=== PATIENT | female | born 2000 | race Two or more races ===

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

== ENCOUNTER 2019-07-13 12:45 | Emergency (ER) | payer OTHER ==
[2019-07-13 12:56] VITALS: BP 136/73
--- NOTE | 2019-07-13 13:33 | UC ---
Abdominal Pain Female HPI - HPI Summary HPI Summary: 19 yo female presents with abdominal cramping. She tells me that on 06/18/19 she had a positive urine test x3. Over the last 2-3 days she has had abdominal cramping and nausea. She has not vomited. She is . She denies fever, chills, SOB, chest pain, back pain, vaginal bleeding/discharge, dysuria. She states that her periods have always been very irregular and the last period she had was in late march or early april 2019. - History of Current Complaint Chief Complaint: UCAbdominalPain Stated Complaint: pegnancy TESTING Time Seen by Provider: 07/13/19 13:32 Hx Obtained From: Patient Hx Last Menstrual Period: April 2019 Onset/Duration: Sudden Onset Severity Initially: Mild Severity Currently: Mild Pain Intensity: 4 Allergies/Adverse Reactions: Allergies Allergy/AdvReac Type Severity Reaction Status Date / Time No Known Allergies Allergy Verified 07/13/19 12:56 Home Medications: Home Medications [id number]/Iron Fum/Folic/Docusate [ 19] 1 tab PO DAILY WITH MEAL 07/13/19 [ History Confirmed 07/13/19] PMH/Surg Hx/FS Hx/Imm Hx - Additional Past Medical History Additional PMH: None - Surgical History Surgical History: None - Family History Known Family History: Negative: Cardiac Disease, Hypertension, Diabetes - Social History Lives: With Family Alcohol Use: None Substance Use Type: None Smoking Status (MU): Never Smoked Tobacco - Immunization History Vaccination Up to Date: Yes Review of Systems All Other Systems Reviewed And Are Negative: No Constitutional: Positive: Negative Skin: Positive: Negative Respiratory: Positive: Negative Cardiovascular: Positive: Negative Gastrointestinal: Positive: Abdominal Pain, Nausea Genitourinary: Positive: Negative Neurological: Positive: Negative Psychological: Positive: Negative Physical Exam - Summary Physical Exam Summary: GENERAL: NAD. WDWN. No pain distress. SKIN: No rashes, sores, lesions, or open wounds. NECK: Supple. Nontender. No lymphadenopathy. CHEST: CTAB. No r/r/w. No accessory muscle use. Breathing comfortably and in no distress. CV: RRR. Pulses intact. Cap refill <2seconds ABDOMEN: Soft. NTTP. No CVA tenderness. Bowel sounds present NEURO: Alert. PSYCH: Age appropriate behavior. Triage Information Reviewed: Yes Vital Signs: Initial Vital Signs Temp 98.4 F 07/13/19 12:51 Pulse 97 07/13/19 12:51 Resp 18 07/13/19 12:51 BP 136/73 07/13/19 12:51 Pulse Ox 100 07/13/19 12:51 Laboratory Tests 07/13/19 07/13/19 13:46 13:48 POC Urine Color Yellow POC Urine Clarity Cloudy POC Urine pH 7.0 POC Ur Specif [place] 1.020 POC Urine Protein Negative POC Ur Glucose (UA) Negative POC Urine Ketones Negative POC Urine Blood Negative POC Urine Nitrite Negative POC Urine Bilirubin Negative POC Urine Urobilinogen 1.0 POC U Leukocyte Esteras Negative POC Ur Test Positive A Vital Signs Reviewed: Yes Diagnostics - Radiology US transvaginal Radiology Interpretation Completed By: Radiologist Summary of Radiographic Findings: IMPRESSION: 1. EARLY INTRAUTERINE WITH AN ESTIMATED GESTATIONAL AGE OF 7 WEEKS 3 DAYS BY CROWN-RUMP LENGTH. 2. SMALL 2 CM CYST WITHIN THE RIGHT OVARY. Abd Pain Female Course/Dx - Course Course Of Treatment: US as above. UA negative. Discussed results with pt. Recommend f/u with OBGYN within the next 1-2 weeks for routine treatment. Advised to go to the ER if she develops abdominal pain, pelvic pain, vaginal bleeding, fever, or vomiting. - Differential Dx/Diagnosis Provider Diagnosis: Abdominal cramping, Discharge ED - Sign-Out/Discharge Documenting (check all that apply): Patient Departure All imaging exams completed and their final reports reviewed: Yes - Discharge Plan Condition: Stable Disposition: HOME Patient Education Materials: Loratadine (By mouth), (ED) Forms: *Work Release Referrals: Fredi Grace NP [Primary Care Provider] - Carlos Guy MD [Medical Doctor] - As Soon As Possible Additional Instructions: If you develop a fever, shortness of breath, chest pain, new or worsening symptoms - please call your PCP or go to the ED immediately. Keep taking your vitamin Please call OBGYN at the number below to schedule an appointment as soon as possible May take claritin as directed for your allergies. - Billing Disposition and Condition Condition: STABLE Disposition: Home - Attestation Statements Provider Attestation: Per institutional requirements, I have reviewed the chart, however, I was not consulted specifically or made aware of this patient by the midlevel provider. I did not personally evaluate, interact with , or disposition this patient.
== END 2019-07-13 14:53 | disposition home or self-care (01) ==
LOC: UCEAST 12:45
DX: O99.89 Other specified diseases and conditions complicating pregnancy, childbirth and the puerperium (principal); R10.9 Unspecified abdominal pain; R11.0 Nausea
CPT/HCPCS: 76801; 81003; 84702; 99211; G0463

== ENCOUNTER 2019-09-15 17:03 | Emergency (ER) | payer OTHER ==
[2019-09-15 17:56] LABS: ABS Eosinophils 0.1 10^3/ul (0-0.6); ABS Lymphocytes 2.1 10^3/ul (1.0-4.8); ABS Monocytes 0.9 10^3/ul (0-0.8); ABS Neutrophils 7.6 10^3/ul (1.5-7.7); Eosinophil % 0.5 %; Hematocrit 36 % (35-47); Hemoglobin 12.2 g/dL (12.0-16.0); Mean Corpuscular HGB Conc 34 g/dL (31-36); Mean Corpuscular Hemoglobin 31 pg (27-31); Mean Corpuscular Volume 91 fL (80-97); Mean Platelet Volume 8.8 fL (7.4-10.4); Platelet Count 222 10^3/uL (150-450); Red Blood Count 3.98 10^6 /uL (3.70-4.87); Red Cell Distribution Width 13 % (10-15); White Blood Count 10.7 10^3/uL (3.5-10.8)
[2019-09-15 18:33] LABS: Albumin 3.8 g/dL (3.2-5.2); Albumin/Globulin Ratio 1.4 (1-3); BUN/Creatinine Ratio 8.8 (8-20); C Reactive Protein 4.48 mg/L (<8.01); Calcium 8.7 mg/dL (8.6-10.3); EGFR African American 110.7 (>60); EGFR Non-African American 91.4 (>60); Globulin 2.8 g/dL (2-4); Magnesium 1.7 mg/dL (1.9-2.7); Total Bilirubin 0.3 mg/dL (0.2-1.0); Total Protein 6.6 g/dL (6.4-8.9)
[2019-09-15] MEDS ORDERED: Ondansetron INJ* 2 MG/ML VIAL IV ONE (20:09)
--- NOTE | 2019-09-15 20:17 | ED ---
Abdominal Pain/Female - HPI Summary HPI Summary: Patient is a 19 y/o F presenting to the ED for a chief complaint of suprapubic abdominal pain that began on 09/15/19. Patient is present with a friend. Patient reports having suprapubic abdominal pain described as cramping with nausea and vomiting. She states she has been unable to keep any food or liquids down because she vomits soon after eating or drinking. Patient also admits a fever of 99 F and dizziness. She denies diarrhea. Patient is 16 weeks and states she has morning sickness with nausea and vomiting 1-2 times in the morning, but states her symptoms now are different. She denies any alleviating factors. This is her first . - History of Current Complaint Chief Complaint: EDNauseaVomitDiarrh Stated Complaint: 16 WEEKS PREG NAUSEA AND VOMITING PER PT Time Seen by Provider: 09/15/19 20:04 Hx Obtained From: Patient Hx Last Menstrual Period: April 2019 ?: Yes - 16 weeks Onset/Duration: Sudden Onset, Still Present Timing: Constant Severity Initially: Moderate Severity Currently: Moderate Pain Intensity: 0 Pain Scale Used: 0-10 Numeric Location: Suprapubic Radiates: No Aggravating Factor(s): Food, Other: - Liquids Alleviating Factor(s): Nothing Associated Signs and Symptoms: Positive: Fever - In vitals, 98.8 F, Dizzy, Nausea, Vomiting. Negative: Vaginal Bleeding, Diarrhea, Other: - Negative vaginal discharge Allergies/Adverse Reactions: Allergies Allergy/AdvReac Type Severity Reaction Status Date / Time No Known Allergies Allergy Verified 09/15/19 17:11 PMH/Surg Hx/FS Hx/Imm Hx Previously Healthy: Yes Endocrine/Hematology History: Denies: Hx Diabetes, Hx Thyroid Disease Cardiovascular History: Denies: Hx Hypercholesterolemia, Hx Hypertension, Hx Peripheral Vascular Disease Respiratory History: Reports: Hx Asthma Denies: Hx Chronic Obstructive Pulmonary Disease (COPD) GI History: Denies: Hx Ulcer Musculoskeletal History: Denies: Hx Arthritis, Hx Rheumatoid Arthritis, Hx Osteoporosis Sensory History: Denies: Hx Cataracts, Hx Contacts or Glasses, Hx Glaucoma, Hx Legally Blind, Hx Deafness Opthamlomology History: Denies: Hx Cataracts, Hx Contacts or Glasses, Hx Glaucoma, Hx Legally Blind EENT History: Denies: Hx Deafness Neurological History: Denies: Hx Headaches, Hx Seizures, Hx Transient Ischemic Attacks (TIA) Psychiatric History: Denies: Hx Anxiety, Hx Depression - Surgical History Surgical History: None Surgery Procedure, Year, and Place: None Infectious Disease History: No Infectious Disease History: Denies: Hx Hepatitis, Hx Human Immunodeficiency Virus (HIV), Traveled Outside the [place] in Last 30 Days - Family History Known Family History: Negative: Cardiac Disease, Hypertension, Diabetes - Social History Occupation: Unemployed Lives: With Family Alcohol Use: None Hx Substance Use: No Substance Use Type: Reports: None Hx Tobacco Use: No Smoking Status (MU): Never Smoked Tobacco Review of Systems Positive: Fever - In vitals, 98.8 F Positive: Abdominal Pain - Suprapubic, cramping, Vomiting, Nausea. Negative: Diarrhea Positive: other - Negative vaginal bleeding. Negative: discharge - Vaginal Neurological: Other - Positive dizziness All Other Systems Reviewed And Are Negative: Yes Physical Exam - Summary Physical Exam Summary: Appearance: Well-appearing, Well-nourished, lying in bed comfortably Skin: Warm, dry, no obvious rash Eyes: sclera anicteric, no conjunctival pallor ENT: mucous membranes moist, pharynx appears normal Neck: Supple, nontender Respiratory: Clear to auscultation, no signs of respiratory distress Cardiovascular: Normal S1, S2. No murmurs. Normal distal pulses in tibial and radial bilaterally. Abdomen: Soft, nontender, normal active bowel sounds present. Fundus of the uterus is palpable and is 4 cm below the umbilicus consistent with her dates. Musculoskeletal: Normal, Strength/ROM Intact Neurological: A&Ox3, awake and alert, mentation is normal, speech is fluent and appropriate Psychiatric: affect is normal, does not appear anxious or depressed Triage Information Reviewed: Yes Vital Signs On Initial Exam: Initial Vitals Temp Pulse Resp BP Pulse Ox 98.8 F 84 16 121/90 100 09/15/19 17:11 09/15/19 17:11 09/15/19 17:11 09/15/19 17:11 09/15/19 17:11 Vital Signs Reviewed: Yes Procedures - Sedation Patient Received Moderate/Deep Sedation with Procedure: No Diagnostics - Vital Signs Vital Signs Temp Pulse Resp BP Pulse Ox 09/15/19 18:43 99.6 F 84 16 110/68 99 09/15/19 17:11 98.8 F 84 16 121/90 100 - Laboratory Lab Results: Lab Results 09/15/19 09/15/19 09/15/19 Range/Units 17:44 17:44 17:44 WBC 10.7 (3.5-10.8) 10^3/uL RBC 3.98 (3.70-4.87) 10^6 /uL Hgb 12.2 (12.0-16.0) g/dL Hct 36 (35-47) % MCV 91 (80-97) fL MCH 31 (27-31) pg MCHC 34 (31-36) g/dL RDW 13 (10-15) % Plt Count 222 (150-450) 10^3/uL MPV 8.8 (7.4-10.4) fL Neut % (Auto) 71.3 % Lymph % (Auto) 20.0 % Vermilion % (Auto) 8.0 % Eos % (Auto) 0.5 % Baso % (Auto) 0.2 % Absolute Neuts (auto) 7.6 (1.5-7.7) 10^3/ul Absolute Lymphs (auto) 2.1 (1.0-4.8) 10^3/ul Absolute Monos (auto) 0.9 H (0-0.8) 10^3/ul Absolute Eos (auto) 0.1 (0-0.6) 10^3/ul Absolute Basos (auto) 0.0 (0-0.2) 10^3/ul Absolute Nucleated RBC 0.0 10^3/ul Nucleated RBC % 0.0 Sodium 137 (135-145) mmol/L Potassium 4.0 (3.5-5.0) mmol/L Chloride 107 (101-111) mmol/L Carbon Dioxide 24 (22-32) mmol/L Anion Gap 6 (2-11) mmol/L BUN 7 (6-24) mg/dL Creatinine 0.80 (0.51-0.95) mg/dL Est GFR ( Amer) 110.7 (>60) Est GFR (Non-Af Amer) 91.4 (>60) BUN/Creatinine Ratio 8.8 (8-20) Glucose 76 (70-100) mg/dL Lactic Acid 0.5 (0.5-2.0) mmol/L Calcium 8.7 (8.6-10.3) mg/dL Magnesium 1.7 L (1.9-2.7) mg/dL Total Bilirubin 0.30 (0.2-1.0) mg/dL AST 19 (13-39) U/L ALT 26 (7-52) U/L Alkaline Phosphatase 54 (34-104) U/L C-Reactive Protein 4.48 (<8.01) mg/L Total Protein 6.6 (6.4-8.9) g/dL Albumin 3.8 (3.2-5.2) g/dL Globulin 2.8 (2-4) g/dL Albumin/Globulin Ratio 1.4 (1-3) Lipase 27 (11.0-82.0) U/L Result Diagrams: 09/15/19 17:44 09/15/19 17:44 Lab Statement: Any lab studies that have been ordered have been reviewed, and results considered in the medical decision making process. Re-Evaluation - Re-Evaluation First Eval Re-Evaluation Time: 21:52 Change: Improved Comment: At 21:52, patient is feeling improved and her nausea is resolved. Abdominal Pain Fem Course/Dx - Course Course Of Treatment: Patient is a 19 y/o F presenting to the ED for a chief complaint of suprapubic abdominal pain that began on 09/15/19. Patient is present with a friend. Patient reports having suprapubic abdominal pain described as cramping with nausea and vomiting. She states she has been unable to keep any food or liquids down because she vomits soon after eating or drinking. Patient also admits a fever of 99 F and dizziness. She denies diarrhea. Patient is 16 weeks and states she has morning sickness with nausea and vomiting 1-2 times in the morning, but states her symptoms now are different. She denies any alleviating factors. This is her first . On exam, fundus of the uterus is palpable and is 4 cm below the umbilicus consistent with her dates. In the ED course, patient was given Zofran 8 mg IV and fluids. Laboratory abnormal findings: absolute monos 0.9, magnesium 1.7. At 21:52, patient is feeling improved and her nausea is resolved. Patient will be discharged with a diagnosis of acute nausea and vomiting. Follow up with PCP in 2-3 days. - Diagnoses Provider Diagnoses: Nausea and vomiting Discharge ED - Sign-Out/Discharge Documenting (check all that apply): Patient Departure - Discharge - Discharge Plan Condition: Improved Disposition: HOME Prescriptions: Ondansetron ODT TAB* [Zofran 4 MG Odt TAB*] 4 mg PO Q6H PRN #15 tab.odt PRN Reason: Nausea Patient Education Materials: Nausea and Vomiting in (ED) Referrals: Fredi Grace, ELECTROLYSIST [Primary Care Provider] - - Billing Disposition and Condition Condition: IMPROVED Disposition: Home - Attestation Statements Document Initiated by Cathieibe: Yes Documenting Scribe: Merced Emanuel Provider For Whom Nilesh is Documenting (Include Credential): Carlos Manuel Villanueva MD Scribe Attestation: Merced Olivo scribed for Carlos Manuel Villanueva MD on 09/16/19 at 0624. Scribe Documentation Reviewed: Yes Provider Attestation: The documentation as recorded by the Merced villagomez accurately reflects the service I personally performed and the decisions made by me, Carlos Manuel Villanueva MD Status of Scribe Document: Viewed
[2019-09-15] MEDS: NS 0.9% 1000 ML** 2,000 ML IV ONE (20:35)
[2019-09-15 23:01] VITALS: BP 114/73
== END 2019-09-15 23:00 | disposition home or self-care (01) ==
LOC: ED 17:03
DX: R11.2 Nausea with vomiting, unspecified (principal); J45.909 Unspecified asthma, uncomplicated
CPT/HCPCS: 36415; 80053; 83605; 83690; 83735; 85025; 86140; 96361; 96374; 99283; J2405

== ENCOUNTER 2019-10-07 17:56 | Emergency (ER) | payer OTHER ==
[2019-10-07 18:07] VITALS: BP 113/67
--- NOTE | 2019-10-07 18:24 | UC ---
Skin Complaint HPI - HPI Summary HPI Summary: 19 yo female presents with lesions to leg. She tells me that on 09/30 she noticed a rash on her left medial-posterior thigh after sleeping in a hotel bed. Since that time has had some blistering, drainage, and now crusting/ scabbing of the area. She has itching and slight burning to the site. Also has some tingling sensations down her knee into her lower leg. She is currently 20weeks . She is seeing her OBGYN for a routine check in 2 days. Denies recent illness, injury, fever, chills, abdominal/pelvic pain, n/v, vaginal bleeding. - History of Current Complaint Chief Complaint: UCSkin Time Seen by Provider: 10/07/19 18:24 Stated Complaint: SORE ON LEG Hx Obtained From: Patient Hx Last Menstrual Period: April 2019 Onset/Duration: Gradual Onset Onset Severity: Mild Current Severity: Moderate Pain Intensity: 6 Pain Scale Used: 0-10 Numeric - Allergy/Home Medications Allergies/Adverse Reactions: Allergies Allergy/AdvReac Type Severity Reaction Status Date / Time No Known Allergies Allergy Verified 09/15/19 17:11 PMH/Surg Hx/FS Hx/Imm Hx - Additional Past Medical History Additional PMH: None - Surgical History Surgical History: None Surgery Procedure, Year, and Place: None - Family History Known Family History: Negative: Cardiac Disease, Hypertension, Diabetes - Social History Occupation: Employed Full-time Lives: With Family Alcohol Use: None Substance Use Type: None Smoking Status (MU): Never Smoked Tobacco - Immunization History Vaccination Up to Date: Yes Review of Systems All Other Systems Reviewed And Are Negative: No Constitutional: Positive: Negative Skin: Positive: Rash Eyes: Positive: Negative ENT: Positive: Negative Respiratory: Positive: Negative Cardiovascular: Positive: Negative Gastrointestinal: Positive: Negative Genitourinary: Positive: Negative Neurological: Positive: Negative Psychological: Positive: Negative Physical Exam - Summary Physical Exam Summary: GENERAL: NAD. WDWN. No pain distress. SKIN: LEFT THIGH: Medial-posterior aspect with two 2.0cm clusters of mild to moderately erythematous crusts and scant clear vesicles. Mildly TTP. No active drainage or open wound. No streaking or abscess. CHEST: No accessory muscle use. Breathing comfortably and in no distress. CV: Pulses intact. Cap refill <2seconds NEURO: Alert. PSYCH: Age appropriate behavior. Triage Information Reviewed: Yes Vital Signs: Initial Vital Signs Temp 97.7 F 10/07/19 18:02 Pulse 96 10/07/19 18:02 Resp 18 10/07/19 18:02 BP 113/67 10/07/19 18:02 Pulse Ox 99 10/07/19 18:02 Vital Signs Reviewed: Yes Course/Dx - Course Course Of Treatment: Suspect shingles. The lesions have already mostly scabbed and she is at least 5 days after initial presentation of the rash. Discussed with Dr. Vallejo - no po treatment at this time and f/u with OBGYN as schedule on Saturday. Discussed this with pt. Advised to keep area covered at all times and to inform her OBGYN at her appt in 2 days. - Diagnoses Provider Diagnosis: Shingles Discharge ED - Sign-Out/Discharge Documenting (check all that apply): Patient Departure All imaging exams completed and their final reports reviewed: No Studies - Discharge Plan Condition: Stable Disposition: HOME Patient Education Materials: Shingles (ED) Referrals: Fredi Grace, TECHNICAL SALES ASSOCIATE [Primary Care Provider] - Additional Instructions: It is very important that you keep your appointment with OBGYN on Saturday -- please show them your leg and let them know it has been diagnosed as shingles. - Billing Disposition and Condition Condition: STABLE Disposition: Home
== END 2019-10-07 18:56 | disposition home or self-care (01) ==
LOC: UCEAST 17:56
DX: O98.512 Other viral diseases complicating pregnancy, second trimester (principal); B02.9 Zoster without complications; Z3A.20 20 weeks gestation of pregnancy
CPT/HCPCS: 99211; G0463

== ENCOUNTER 2019-12-09 21:20 | Emergency (ER) | payer OTHER ==
[2019-12-09] MEDS ORDERED: NS 0.9% 1000 ML** 1,000 ML IV ONE ×2 (22:32→22:50)
[2019-12-09] MEDS ORDERED: Ondansetron INJ* 2 MG/ML VIAL IV ONE ×2 (22:32→22:50)
[2019-12-09] MEDS ORDERED: Pantoprazole IV* 40 MG IV ONE (22:50)
[2019-12-09 22:52] LABS: ABS Monocytes 0.5 10^3/ul (0-0.8); ABS Neutrophils 13.3 10^3/ul (1.5-7.7); Eosinophil % 0.1 %; Hematocrit 38 % (35-47); Hemoglobin 13.1 g/dL (12.0-16.0); Mean Corpuscular HGB Conc 34 g/dL (31-36); Mean Corpuscular Hemoglobin 31 pg (27-31); Mean Corpuscular Volume 90 fL (80-97); Mean Platelet Volume 9.5 fL (7.4-10.4); Platelet Count 210 10^3/uL (150-450); Red Blood Count 4.24 10^6 /uL (3.70-4.87); Red Cell Distribution Width 13 % (10-15); White Blood Count 14.9 10^3/uL (3.5-10.8)
[2019-12-09 22:55] LABS: INR 0.97 (0.82-1.09)
--- NOTE | 2019-12-09 22:55 | ED ---
- HPI Summary HPI Summary: Patient is a 19 y/o F presenting to [facility] with a chief complaint of RLQ pain radiating into the flank and into the lower back onset this morning. She is currently 29 weeks gravid, A0. This morning, she developed sharp pains in the right abdomen radiating into the back. She has not experienced this pain before, and she has not had any complications with her thus far. She denies any vaginal bleeding or discharge, fevers, or diarrhea. Pain is currently rated 8/10 in severity. She has not taken any medications POST MANAGER for treatment. PMHx: asthma, no surgeries. Nonsmoker, no EtOH, no substance use. Medications reviewed. Allergies noted. - History of Current Complaint Chief Complaint: EDAbdPain Stated Complaint: VOMITING/29 WEEKS PREG PER PT Time Seen by Provider: 12/09/19 22:34 Hx Obtained From: Patient Chief Complaint: Pain Onset/Duration: Started Hours Ago, Atraumatic, Still Present Timing: Constant Severity: Moderate Current Severity: Severe Pain Intensity: 8 Location of Pain: Right Side, Radiates to: - right flank, right low back Character: Sharp Aggravating Factors: Nothing Alleviating Factors: Nothing Associated Signs and Symptoms: Positive: Back Pain. Negative: Fever, Vaginal Bleeding or Discharge, Other: - diarrhea - Assessment Hx Now: Yes - Allergies/Home Medications Allergies/Adverse Reactions: Allergies Allergy/AdvReac Type Severity Reaction Status Date / Time No Known Allergies Allergy Verified 12/09/19 23:27 Home Medications: Home Medications Nxy095/Iron Fum/Folic/Docusate [ 19 Tablet] 1 tab PO DAILY WITH MEAL 04/24 [History Confirmed 12/09/19] Cephalexin CAP* [Keflex CAP*] 500 mg PO TID #21 cap 12/10/19 [Rx] PMH/Surg Hx/FS Hx/Imm Hx Endocrine/Hematology History: Denies: Hx Diabetes, Hx Thyroid Disease Cardiovascular History: Denies: Hx Hypercholesterolemia, Hx Hypertension, Hx Peripheral Vascular Disease Respiratory History: Reports: Hx Asthma Denies: Hx Chronic Obstructive Pulmonary Disease (COPD) GI History: Denies: Hx Ulcer Musculoskeletal History: Denies: Hx Arthritis, Hx Rheumatoid Arthritis, Hx Osteoporosis Sensory History: Denies: Hx Cataracts, Hx Contacts or Glasses, Hx Glaucoma, Hx Legally Blind, Hx Deafness Opthamlomology History: Denies: Hx Cataracts, Hx Contacts or Glasses, Hx Glaucoma, Hx Legally Blind Neurological History: Denies: Hx Headaches, Hx Seizures, Hx Transient Ischemic Attacks (TIA) Psychiatric History: Denies: Hx Anxiety, Hx Depression - Surgical History Surgical History: None Surgery Procedure, Year, and Place: None Infectious Disease History: No Infectious Disease History: Denies: Hx Hepatitis, Hx Human Immunodeficiency Virus (HIV), Traveled Outside the [place] in Last 30 Days - Family History Known Family History: Negative: Cardiac Disease, Hypertension, Diabetes - Social History Alcohol Use: None Hx Substance Use: No Substance Use Type: Reports: None Hx Tobacco Use: No Smoking Status (MU): Never Smoked Tobacco - Additional Comments History Additional Comments: , asthma Review of Systems - ROS Summary Review of Systems Summary: Home Medications Medication Instructions Recorded Confirmed Type Ukv396/Iron Fum/Folic/Docusate 1 tab PO DAILY WITH MEAL 07/13/19 10/07/19 History [ 19] Negative: Fever Positive: Abdominal Pain - RLQ radiating into the flank. Negative: Diarrhea Negative: discharge, other - vaginal bleeding Positive: Other - right low back All Other Systems Reviewed And Are Negative: Yes Physical Exam - Summary Physical Exam Summary: General: Well-developed, Well-nourished 29-week gravid female, . Appears to be in moderate discomfort. HEENT: Normocephalic, Atraumatic. Eyes: Conjuctiva normal, PERRL. Oropharynx: Clear, mucous membranes moist, (-) exudates. Neck: Soft, FROM, (-) lymphadenopathy, (-) thyromegaly, (-) JVD. Cardiovascular: Normal sinus rhythm, (-) murmur. Lungs: Clear to auscultation bilaterally (-) wheezes, (-) rales, (-) rhonchi. Abdomen: Fundus is well above the umbilicus, Soft, non-tender, non-distended, (- ) organomegaly, normal bowel sounds Back: (-) CVA tenderness Extremities: No edema. Skin: Warm, dry, (-) rash. Neuro: Alert and oriented x3, moves all extremities equally. No ataxia. No gait disturbance. No sensory deficit. Normal strength, normal sensation. Psychiatric: Mood normal, affect normal. - Physical Exam Triage Information Reviewed: Yes Vital Signs Reviewed: Yes Procedures - Sedation Patient Received Moderate/Deep Sedation with Procedure: No Diagnostics - Vital Signs Vital Signs Temp Pulse Resp BP Pulse Ox 12/09/19 21:57 97.7 F 112 20 130/97 98 12/09/19 21:22 97.6 F 106 20 145/74 97 - Laboratory Result Diagrams: 12/09/19 22:41 12/09/19 22:41 Lab Statement: Any lab studies that have been ordered have been reviewed, and results considered in the medical decision making process. - Ultrasound Appendix US Ultrasound Interpretation Completed By: Radiologist Summary of Ultrasound Findings: Impression: Nonvisualized appendix with no secondary findings to suggest appendicitis. If there is continued concern for acute appendicitis, followup MRI is recommended. ED physician has reviewed this report. Renal US Ultrasound Interpretation Completed By: Radiologist Summary of Ultrasound Findings: Impression: Right pelvicaliureterectasis likely compressed by the gravid uterus. ED physician has reviewed this report. Re-Evaluation - Re-Evaluation First Eval Re-Evaluation Time: 03:00 Comment: I discussed all results and pain has improved. Discussed all results that warrant return to the ED. Course/Dx - Course Course Of Treatment: 19-year-old female, at 29 weeks gestation presents with right lower quadrant abdominal pain. She states pain started today. It radiates to the right low back. No fevers. has nausea no vomiting. No urinary complaints. no vaginal discharge or bleeding. On physical exam patient has mild tenderness in the right lower quadrant. Fundus appropriate size. Abdomen is soft. no flank tenderness. patietn treated with IVfs, protonix and zofran. Workup demonstrates elevated white count as expected at this time in . Urinary tract infection. Ultrasound of the appendix and pelvic area showed no significant abnormalities. heart monitoring demonstrated no contractions. Good heart tones. Patient started on Keflex. Discharged to home. Follow-up with CHAIRMAN PRESIDENT AND CHIEF EXECUTIVE OFFICER. Follow-up sooner for any worsening symptoms. - Diagnoses Provider Diagnoses: UTI (urinary tract infection), , incidental, RLQ abdominal pain Discharge ED - Sign-Out/Discharge Documenting (check all that apply): Patient Departure - discharge - Discharge Plan Condition: Stable Disposition: HOME Prescriptions: Cephalexin CAP* [Keflex CAP*] 500 mg PO TID #21 cap Patient Education Materials: Urinary Tract Infection in (ED) Referrals: Fredi Grace VAN OWNER OPERATOR [Primary Care Provider] - 3 Days Additional Instructions: Follow up with your primary care provider in 2-3 days. Return to the emergency department for any new or worsening symptoms. - Billing Disposition and Condition Condition: STABLE Disposition: Home - Attestation Statements Document Initiated by Nilesh: Yes Documenting Scribe: Lakisha Mills Provider For Whom Nilesh is Documenting (Include Credential): Rica Tolentino MD Scribe Attestation: ILakisha, scribed for Rica Tolentino MD on 12/15/19 at 0205. Scribe Documentation Reviewed: Yes Provider Attestation: The documentation as recorded by the Lakisha villagomez accurately reflects the service I personally performed and the decisions made by me, Rica Tolentino MD Status of Scribe Document: Viewed
[2019-12-09 23:09] LABS: Albumin 3.9 g/dL (3.2-5.2); Albumin/Globulin Ratio 1.3 (1-3); BUN/Creatinine Ratio 14.9 (8-20); Calcium 9.2 mg/dL (8.6-10.3); EGFR African American 135.8 (>60); EGFR Non-African American 112.2 (>60); Potassium 4.2 mmol/L (3.5-5.0); Total Bilirubin 0.6 mg/dL (0.2-1.0); Total Protein 6.9 g/dL (6.4-8.9)
[2019-12-10] MEDS ORDERED: Cephalexin CAP* 500 MG PO ONE (02:30)
[2019-12-10] MEDS ORDERED: Cephalexin CAP* 500 MG ONE (02:46)
[2019-12-10 04:10] VITALS: BP 120/83
[2019-12-10 04:22] LABS: Urine Appearance Cloudy; Urine Bacteria 1+ (Absent); Urine Bilirubin Negative (Negative); Urine Blood 3+ (Negative); Urine Color Amber; Urine Glucose Negative (Negative); Urine Ketones 2+ (Negative); Urine Nitrite Positive (Negative); Urine Protein 1+(30 mg/dL) (Negative); Urine Red Blood Cell 3+(>10/hpf) (Absent); Urine Specific Gravity 1.023 (1.010-1.030); Urine Squamous Epithelial Cell Present (Absent); Urine Urobilinogen Negative (Negative); Urine White Blood Cell 3+(>20/hpf) (Absent)
--- NOTE | 2019-12-13 07:13 | ED ---
Imaging and Labs Follow Up Follow Up Type: Labs/Cultures Labs/Culture Result: Urine culture final grew Escherichia coli 100,000 Patient Communication/Plan: This patient was made aware placed on Keflex Patient Communication/Plan: Culture reveals this is sensitive to organism, nothing for the required Provider Diagnoses: UTI (urinary tract infection), , incidental, RLQ abdominal pain
== END 2019-12-10 02:50 | disposition home or self-care (01) ==
LOC: ED 21:20
DX: O23.42 Unspecified infection of urinary tract in pregnancy, second trimester (principal); R10.31 Right lower quadrant pain; Z3A.29 29 weeks gestation of pregnancy
CPT/HCPCS: 36415; 76705; 76775; 80053; 81003; 81015; 85025; 85610; 87077; 87086; 87186; 96361; 96374; 96375; 99284; A9270-GY; J2405

== ENCOUNTER 2020-02-05 18:38 | Inpatient (IN) ==
[2020-02-05] MEDS ORDERED: Lactated Ringers 1000 ml BAG 1,000 ML IV ONE (18:49)
[2020-02-05] MEDS ORDERED: Dinoprostone 10 MG VAG.SUPP VAGINAL ONE (18:49)
[2020-02-05] MEDS ORDERED: Lactated Ringers 1000 ml BAG 1,000 ML IV SCH (19:00)
[2020-02-05 21:50] LABS: Urine Total Volume OB 850 mL
[2020-02-05 22:17] LABS: Ur TP Concentration Obstetric 10 mg/dL
[2020-02-06] MEDS ORDERED: Oxytocin in LR 20 UNITS/1,000 ML BAG IVPB SCH (09:00)
[2020-02-06 09:24] LABS: ABS Monocytes 0.8 10^3/ul (0-0.8); Eosinophil % 0.3 %; Hematocrit 36 % (35-47); Hemoglobin 12.3 g/dL (12.0-16.0); Lymphocyte % 19.9 %; Mean Corpuscular HGB Conc 34 g/dL (31-36); Mean Corpuscular Hemoglobin 31 pg (27-31); Mean Corpuscular Volume 90 fL (80-97); Mean Platelet Volume 11.8 fL (7.4-10.4); Platelet Count 145 10^3/uL (150-450); Red Blood Count 3.97 10^6 /uL (3.70-4.87); Red Cell Distribution Width 13 % (10-15); White Blood Count 10.1 10^3/uL (3.5-10.8)
[2020-02-06 09:39] LABS: Urine Benzodiazepine Screen None Detected (None Detect); Urine Opiates Screen None Detected (None Detect)
[2020-02-06 10:00] LABS: Albumin 3.4 g/dL (3.2-5.2); Calcium 9.1 mg/dL (8.6-10.3); Potassium 3.9 mmol/L (3.5-5.0); Total Bilirubin 0.3 mg/dL (0.2-1.0)
[2020-02-06 10:05] LABS: Albumin/Globulin Ratio 1.5 (1-3); BUN/Creatinine Ratio 12.9 (8-20); EGFR African American 127.8 (>60); EGFR Non-African American 105.6 (>60); Globulin 2.3 g/dL (2-4); Total Protein 5.7 g/dL (6.4-8.9); Uric Acid 6.9 mg/dL (2.3-6.6)
[2020-02-06] MEDS ORDERED: OBEPIDURAL 250 ML EPIDURAL ONE (21:09)
[2020-02-06] MEDS ORDERED: Bupivacaine 0.25% SDV PF* 10 ML VIAL INJ ONE (21:11)
[2020-02-06] MEDS ORDERED: EPHEDrine (Pressors) 50 MG/ML VIAL IV PUSH PRN (21:38)
[2020-02-06] MEDS ORDERED: Sodium Citrate/Citric Acid LIQ 15 ML UDC PO PRN (21:38)
[2020-02-06] MEDS ORDERED: Lactated Ringers 1000 ml BAG 1,000 ML IV ONE (21:38)
[2020-02-06] MEDS ORDERED: Lactated Ringers 1000 ml BAG 1,000 ML IV SCH (22:00)
[2020-02-06] MEDS ORDERED: OBEPIDURAL 250 ML EPIDURAL SCH (22:00)
[2020-02-06] MEDS: Phenylephrine 40 mcg/mL 10mL (400mcg) SYRINGE IV PUSH PRN ×2 (22:03→22:20)
[2020-02-07] MEDS ORDERED: Ondansetron 4 mg VIAL 2 MG/ML 2 ml VIAL IV ONE (03:19)
[2020-02-07] MEDS ORDERED: fentaNYL 100 mcg/2 ml 50 MCG/ML VIAL ONE (05:34)
[2020-02-07] MEDS ORDERED: Lidocaine 1% VIAL 10 MG/ML VIAL ONE (06:07)
[2020-02-07] MEDS ORDERED: Glycerin ADULT 2.4 gm SUPP PR PRN (06:08)
[2020-02-07] MEDS ORDERED: Dibucaine 1% OINT 28.35 GM TUBE PR PRN (06:08)
[2020-02-07] MEDS ORDERED: Witch Hazel PAD JAR TOPICAL PRN (06:08)
[2020-02-07] MEDS ORDERED: Oxytocin in LR 20 UNITS/1,000 ML BAG IVPB SCH (07:00)
[2020-02-07] MEDS ORDERED: Lactated Ringers 1000 ml BAG 1,000 ML IV SCH (07:00)
[2020-02-08 08:26] VITALS: BP 129/89
[2020-02-08 08:33] LABS: ABS Eosinophils 0.1 10^3/ul (0-0.6); ABS Lymphocytes 2.7 10^3/ul (1.0-4.8); ABS Monocytes 0.9 10^3/ul (0-0.8); Eosinophil % 0.9 %; Hematocrit 31 % (35-47); Hemoglobin 10.3 g/dL (12.0-16.0); Lymphocyte % 21.7 %; Mean Corpuscular HGB Conc 34 g/dL (31-36); Mean Corpuscular Hemoglobin 31 pg (27-31); Mean Corpuscular Volume 91 fL (80-97); Mean Platelet Volume 10.7 fL (7.4-10.4); Platelet Count 118 10^3/uL (150-450); Red Blood Count 3.38 10^6 /uL (3.70-4.87); Red Cell Distribution Width 13 % (10-15); White Blood Count 12.5 10^3/uL (3.5-10.8)
== END 2020-02-08 11:05 | disposition home or self-care (01) | DRG 560 ==
LOC: MCHOB 18:38
PROVIDERS: ADMIT Midwife; ATTEND Midwife

== ENCOUNTER 2022-01-15 10:47 | Inpatient (IN) ==
[2022-01-15] MEDS ORDERED: Buffered Lidocaine 1% SYRIN 1 ml INTRADERM ONE (11:56)
[2022-01-15] MEDS ORDERED: Oxytocin in LR 20 UNITS/1,000 ML BAG IVPB SCH (12:00)
[2022-01-15] MEDS ORDERED: Lactated Ringers 1000 ml BAG 1,000 ML IV SCH ×2 (12:00→19:00)
[2022-01-15] MEDS: Lactated Ringers 1000 ml BAG 1,000 ML IV ONE ×2 (12:10→13:25)
[2022-01-15 12:33] LABS: Hematocrit 34 % (35-47); Hemoglobin 11.2 g/dL (12.0-16.0); Mean Corpuscular HGB Conc 33 g/dL (31-36); Mean Corpuscular Hemoglobin 28 pg (27-31); Mean Corpuscular Volume 85 fL (80-97); Mean Platelet Volume 11.4 fL (7.4-10.4); Platelet Count 160 10^3/uL (150-450); Red Blood Count 3.94 10^6 /uL (3.70-4.87); Red Cell Distribution Width 13 % (10-15); White Blood Count 8.4 10^3/uL (3.5-10.8)
[2022-01-15 12:44] LABS: ABS Eosinophils 0.1 10^3/ul (0-0.6); ABS Lymphocytes 1.4 10^3/ul (1.0-4.8); ABS Monocytes 0.7 10^3/ul (0-0.8); ABS Neutrophils 6.2 10^3/ul (1.5-7.7); Eosinophil % 0.7 %; Lymphocyte % 16.8 %; Nucleated Red Blood Cells % 0.1
[2022-01-15 12:56] LABS: Urine Benzodiazepine Screen None Detected (None Detect); Urine Cannabinoids Screen None Detected (None Detect); Urine Opiates Screen None Detected (None Detect)
[2022-01-15] MEDS ORDERED: OBEPIDURAL (200 ML) 200 ML EPIDURAL ONE (17:31)
[2022-01-15] MEDS ORDERED: Sodium Citrate/Citric Acid LIQ 15 ML UDC PO PRN (18:53)
[2022-01-15] MEDS ORDERED: Lactated Ringers 1000 ml BAG 1,000 ML IV ONE (18:53)
[2022-01-15] MEDS ORDERED: Phenylephrine 40 mcg/mL 10mL (400mcg) SYRINGE IV PUSH PRN ×2 (18:53)
[2022-01-15] MEDS ORDERED: OBEPIDURAL (200 ML) 200 ML EPIDURAL SCH (19:00)
[2022-01-15] MEDS: Albuterol HFA INHALER 8 gm MDI INH PRN (20:14)
[2022-01-15 20:31] LABS: Urine Appearance Clear; Urine Bilirubin Negative (Negative); Urine Blood 3+ (Negative); Urine Color Yellow; Urine Glucose Negative (Negative); Urine Ketones Negative (Negative); Urine Nitrite Negative (Negative); Urine Protein Negative (Negative); Urine Specific Gravity 1.013 (1.002-1.030); Urine Urobilinogen Negative (Negative)
[2022-01-15] MEDS ORDERED: Ondansetron 4 mg VIAL 2 MG/ML 2 ml VIAL IV PRN (20:37)
[2022-01-15 20:38] LABS: Urine Bacteria Absent (Absent); Urine Red Blood Cell 3+(>10/hpf) (Absent); Urine Squamous Epithelial Cell Present (Absent); Urine White Blood Cell Trace(0-5/hpf) (Absent)
[2022-01-16] MEDS ORDERED: Glycerin ADULT 2.4 gm SUPP PR PRN (00:05)
[2022-01-16] MEDS ORDERED: Oxytocin in LR 20 UNITS/1,000 ML BAG IVPB SCH (01:00)
[2022-01-16] MEDS: Witch Hazel PAD JAR TOPICAL PRN ×2 (02:45→06:45)
[2022-01-16] MEDS: Dibucaine 1% OINT 28.35 GM TUBE PR PRN ×2 (02:45→06:45)
[2022-01-16 11:21] LABS: ABS Eosinophils 0.1 10^3/ul (0-0.6); ABS Lymphocytes 1.4 10^3/ul (1.0-4.8); ABS Monocytes 0.7 10^3/ul (0-0.8); ABS Neutrophils 7.8 10^3/ul (1.5-7.7); Eosinophil % 0.7 %; Hematocrit 26 % (35-47); Lymphocyte % 14.2 %; Mean Corpuscular HGB Conc 35 g/dL (31-36); Mean Corpuscular Hemoglobin 29 pg (27-31); Mean Corpuscular Volume 85 fL (80-97); Nucleated Red Blood Cells % 0.1; Platelet Count 116 10^3/uL (150-450); Red Blood Count 3.07 10^6 /uL (3.70-4.87); Red Cell Distribution Width 13 % (10-15)
[2022-01-16] MEDS: Albuterol HFA INHALER 8 gm MDI INH PRN ×2 (15:32→21:26)
[2022-01-17 08:33] VITALS: BP 127/72
== END 2022-01-17 14:30 | disposition home or self-care (01) | DRG 560 ==
LOC: MCHOBOUT 10:47 → MCHOB 11:53
PROVIDERS: ADMIT Midwife; ATTEND Midwife